=== PATIENT | male | born 1980 | race Caucasian/White ===

== ENCOUNTER 2018-10-05 13:28 | Inpatient (IN) | payer OTHER ==
[2018-10-05 13:36] VITALS: BMI 34.4
--- NOTE | 2018-10-05 13:38 | PDOC ---
History of Present Illness - General Chief Complaint: Injury Stated Complaint: LEFT HIP PAIN Time Seen by Provider: 10/05/18 13:34 - History of Present Illness Initial Comments: 10/05/18 17:17 38 years old with no significant past medical history presents to the emergency department with trauma to left hip. Patient states that approximate 5:00 in the morning he was standing on a kitchen stepstool/ladder fell from approximately 3- 4 feet height directly onto his left hip. Pain was severe 10 out of 10 patient tried to take some Motrin later when he tried to ambulate on it his leg gave out fell face forward sustaining a hematoma to his front of his head and abrasions to his knees Unable to ambulate secondary to pain Pain is persistent constant worse with movement no alleviating factors. Past History - Past Medical History Allergies/Adverse Reactions: Allergies Allergy/AdvReac Type Severity Reaction Status Date / Time No Known Allergies Allergy Verified 10/05/18 13:29 Home Medications: Ambulatory Orders Losartan/Hydrochlorothiazide [Losartan-Hctz 100-25 mg Tab] 1 each PO DAILY 10/05 COPD: No HTN: Yes - Suicide/Smoking/Psychosocial Hx Smoking History: Never smoked Have you smoked in the past 12 months: No Information on smoking cessation initiated: No Hx Alcohol Use: No Review of Systems - Review of Systems Comments:: 10/05/18 17:17 ROS: A complete review of 10 out of 10 review of systems is taken and is negative apart from what is previously mentioned below and in the HPI. *Physical Exam - Vital Signs Last Vital Signs Temp Pulse Resp BP Pulse Ox 98.2 F 89 18 142/97 98 10/05/18 13:28 10/05/18 13:28 10/05/18 13:28 10/05/18 13:28 10/05/18 13:28 - Physical Exam Comments: 10/05/18 17:17 Vitals: Triage Vital signs reviewed General Appearance: severe distress, well nourished well developed, Head: Hematoma above left forehead Eyes: Pupils equal reactive round, extraocular movement intact Ears: TM's normal bilaterally; Neck: Supple;No Nucal rigidity Chest Wall: Nontender Cardiac: Regular rate and rhythym, no murmurs, no rubs, no gallops, Lungs: Clear to auscultation bilateral, good air movement bilaterally, Abdomen: Soft, non distended, normal bowel sounds, non tender to palpation Extremities:Unable to range left hip. Neurovascullary intact distally. Skin: Warm and dry, Abrasion to right forehead abrasion above left eyebrow abrasion to bilateral knee and right parkinson Neuro: Strength intact to all extremities, Sensation intact to all extremities Psych: normal mood, normal affect 10/05/18 17:28 Moderate Sedation - Pre-Procedure Assessment Joint Reduction Is this a Moderate (Conscious) sedation patient?: Yes Med/Surg Hx & PE performed: Yes Vital Signs: Vital Signs Temp Pulse Resp BP Pulse Ox 98.2 F 82 16 146/92 98 10/05/18 13:28 10/05/18 15:25 10/05/18 15:25 10/05/18 15:25 10/05/18 15:25 Does the patient have a history of Obstructive Sleep Apnea: No Prior complications with sedation/analgesia: No Mallampati Score: I ASA Physical Status: Class I Consent obtained: Written Time out called (time): 15:00 Items checked for time out procedure: All work stopped, Patient identified using 2 identifiers, Procedure to be performed verified & agreed, Allergies noted, Consent read, Site marked & verified (if indicated), ED physician/STEWARDING SUPERVISOR/PA/ Resident identified, Patient position verified, All active procedure participants present from the beginning Sedation agent: Propofol # 2 Joint Reduction Is this a Moderate (Conscious) sedation patient?: Yes Med/Surg Hx & PE performed: Yes Vital Signs: Vital Signs Temp Pulse Resp BP Pulse Ox 99.9 F H 89 19 103/51 L 96 10/07/18 06:00 10/07/18 06:00 10/07/18 06:00 10/07/18 06:00 10/07/18 06:00 Does the patient have a history of Obstructive Sleep Apnea: No Prior complications with sedation/analgesia: No NPO since (date): 10/05/18 NPO since (time): 11:00 Mallampati Score: I ASA Physical Status: Class I Consent obtained: Written Time out called (time): 16:40 Items checked for time out procedure: All work stopped, Patient identified using 2 identifiers, Procedure to be performed verified & agreed, Allergies noted, Consent read, Site marked & verified (if indicated), ED physician/STEWARDING SUPERVISOR/PA/ Resident identified, Patient position verified, All active procedure participants present from the beginning Sedation agent: Other (KETOFOL) - Post Procedure Assessment Tolerated procedure well: Yes Was a reversal agent used?: No Patient evaluation: Awake, alert and oriented, Vital signs reviewed, Cardiopulmonary exam normal, Pain controlled Printed Discharge Instructions given: No (not successfully reduced) Heart Score/ECG Review - ECG Impressions Comment:: 10/05/18 17:27 EKG performed at 1718 demonstrates normal sinus rhythm no ST elevations or T- wave inversions. OK interval 172 QRS 86 QTC 437 Interpreted by me. ED Treatment Course - LABORATORY CBC & Chemistry Diagram: 10/07/18 07:20 10/07/18 07:20 Medical Decision Making - Critical Care Time Total Critical Care Time (minutes): 45 Critical Care Statement: The care of this patient involved high complexity decision making to prevent further life threatening deterioration of the patient 's condition and/or to evaluate & treat vital organ system(s) failure or risk of failure. - Medical Decision Making 10/05/18 17:22 S/P Mechanical fall from ladder directly on to left hip. 2nd fall onto head and knees after patient unable to weight bear after 1st fall. Direct trauma to left hip secondary minor head trauma normal neuro exam patient and extremis in the ED 1 mg IV Dilaudid patient sent for x-rays hips [place] left hip dislocation orthopedics consulted 1440 Patient consulted for hip reduction with sedation. Pt. npo since 11am. Hip has been out since 5am. Given the importance of prompt reduction risk benefits of proceding with sedation d/w patient. Pt. agrees to proceed with reduction attempt. 1500pm Moderate sedation performed by TIANA Elaine and reduction performed by Dr. Berkowitz orthopedics Post-reduction film shows improvement but not complete resolution of dislocation 1640pm Patient in agreement for second attempt second attempt performed again with incomplete resolution of dislocation at this time after discussion with patient and orthopedics patient to be transferred to the OR for reduction of left hip A head CT was performed prior to surgery which demonstrates no acute pathology or bleed Tetanus updated wounds have been cleaned all questions answered by TIANA Elaine *DC/Admit/Observation/Transfer Diagnosis at time of Disposition: Hip dislocation, left Qualifiers: Encounter type: initial encounter Qualified Code(s): S73.005A - Unspecified dislocation of left hip, initial encounter - Discharge Dispostion Condition at time of disposition: Stable Decision to Admit order: Yes - Referrals - Patient Instructions - Post Discharge Activity
[2018-10-05] MEDS ORDERED: HYDROmorphone HCL CARPU-JECT 1 MG/1 ML DISP.SYRIN IVPUSH ONE (13:39)
[2018-10-05] MEDS ORDERED: HYDROmorphone HCL CARPU-JECT 1 MG/1 ML DISP.SYRIN ONE (13:50)
[2018-10-05 14:09] LABS: BASO % 0.3 % (0-2.0); EOS % 0.1 % (0-4.5); HEMOGLOBIN 13.9 GM/dl (11.7-16.9); LYMPH % 13.6 % (8-40); MCH 30.7 pg (25.7-33.7); MCHC 33.8 g/dl (32.0-35.9); MEAN CELL VOLUME 90.8 fl (80-96); MEAN PLT VOLUME 7.6 fl (7.5-11.1); MONO % 10.8 % (3.8-10.2); NEUT % 75.2 % (42.8-82.8); PLATELET COUNT 319 K/MM3 (134-434); RBC 4.51 M/mm3 (4.00-5.60)
[2018-10-05 14:21] LABS: ACTIVATED PTT 27.5 SECONDS (25.2-36.5)
[2018-10-05 14:22] LABS: ALBUMIN 4.2 g/dl (3.4-5.0); CALCIUM 8.9 mg/dl (8.5-10); CREATININE 0.9 mg/dl (0.55-1.3); POTASSIUM 3.1 mmol/L (3.5-5.1); TOT PROT 7.4 g/dl (6.4-8.2)
[2018-10-05 14:25] LABS: INR 1.23 (0.82-1.09); PROTHROMBIN TIME (PATIENT) 13.7 SEC (10.2-13.0)
[2018-10-05] MEDS ORDERED: PROPOFOL 200 MG/20 ML VIAL IVPUSH ONE ×3 (15:00→16:19)
[2018-10-05] MEDS ORDERED: PROPOFOL 20 ML ONE ×2 (15:02→15:10)
[2018-10-05] MEDS ORDERED: KETAMINE HCL 200 MG/20 ML VIAL IVPUSH ONE ×2 (16:39→18:00)
[2018-10-05] MEDS ORDERED: KETAMINE HCL 200 MG/20 ML VIAL ONE (16:40)
[2018-10-05] MEDS ORDERED: DIPHTH,PERTUSS(ACELL),TET 0.5 ML DISP.SYRIN IM ONE ×2 (17:18→18:27)
[2018-10-05] MEDS ORDERED: MIDAZOLAM HCL 2 MG/2 ML SINGLE DOSE VIAL ONE ×2 (18:01→18:57)
[2018-10-05] MEDS ORDERED: SODIUM CHLORIDE 0.9% P/F 10 ML VIAL IJ ONE ×2 (18:40→18:50)
[2018-10-05] MEDS ORDERED: ceFAZolin SODIUM 1 GM VIAL ONE (18:50)
[2018-10-05 19:16] LABS: CALCIUM 8.1 mg/dl (8.5-10); CREATININE 1.1 mg/dl (0.55-1.3); POTASSIUM 3.2 mmol/L (3.5-5.1)
[2018-10-05] MEDS ORDERED: PROMETHAZINE HCL 25 MG/1 ML VIAL IVPUSH PRN (20:40)
[2018-10-05] MEDS ORDERED: ONDANSETRON 4 MG/2 ML VIAL IVPUSH PRN (20:40)
--- NOTE | 2018-10-05 22:44 | HP ---
DATE OF ADMISSION: 10/05/2018 CHIEF COMPLAINT: Left hip pain. HISTORY OF PRESENT ILLNESS: This is a 38-year-old gentleman who in the small hours of the morning was on a step ladder when he fell off. He was unable to ambulate afterwards, but decided to wait at home to see if the pain would subside. After not improving, he presented to the emergency department at [facility]. Here, he was found to have a hip dislocation. Orthopedic consultation was called. PAST MEDICAL HISTORY: Includes hypertension. PAST SURGICAL HISTORY: Denies. MEDICATIONS: Include losartan. ALLERGIES: Denies. REVIEW OF SYMPTOMS: Negative for any fever, chills, nausea, vomiting, night sweats, dysuria, shortness of breath, chest pain, rashes, pruritus. No chest pain or palpitations. SOCIAL HISTORY: Denies any drugs or tobacco; occasional alcohol, but not on a weekly basis. PHYSICAL EXAMINATION: General: This is a well-appearing male in apparent discomfort. He is alert and oriented x3. Skin: He is noted to have some abrasions over his head as well as over both knees, which demonstrate no sign of infection. There is no active bleeding. Extremities: The left lower extremity is held in an internally rotated position and is short. He has no pain with range of motion of the upper extremities. He has no pain with range of motion of the right lower extremity. Distally, on his left lower extremity, sensation is intact to light touch. EHL, FHL, tibialis anterior, gastroc, and soleus are all intact. He has a 2+ DP and PT pulse. IMAGING: Radiographs are reviewed, demonstrating a posterior hip dislocation on the left side. No definite fractures are seen. LABORATORY: Results are reviewed, demonstrating elevated liver enzymes as well as some hyponatremia. ASSESSMENT: Left hip dislocation. PLAN: I discussed today's findings with the patient and his . His was present initially for the discussion and then when formal consent was signed, also had done this over the phone as she had left the building at that point. I reviewed that he had a hip dislocation which already had been out for many hours. I reviewed the biggest concern with hip dislocation at this point is avascular necrosis. This is a problem where the bone in the hip dies due to limited blood supply. The best treatment is urgent closed reduction. After review of the risks, benefits, and alternatives of closed reduction, the patient and his elected to proceed. The patient was administered sedation by the emergency room, and good sedation and relaxation were achieved. Traction was applied to the hip and the hip was felt to pop and limb length was now equivalent. There was still significantly limited rotation, however. A post-reduction x-ray was obtained, demonstrating that the proximal migration of the head was corrected. However, it had not entered the acetabular space. The decision was made to perform 1 more attempt at a closed reduction. The second anesthetic was administered, and despite satisfactory relaxation, the hip was able to be posterior dislocated again with gentle pressure, several attempts were made at pulling traction in different rotations to get the hip reduced. However, the rotation could not be restored. Given this finding, the decision was made that a closed reduction would not be successful. After the patient had awoken from the anesthetic and also with his present, we discussed that in the case of a failed closed reduction, open reduction urgently should be performed. Again, the primary concern with hip dislocation is avascular necrosis. Also of concern is sciatic nerve injury. I advised that even with timely closed or open reduction, avascular necrosis is still possible in up to 30% of cases and longer time dislocated is thought to worsen the risk. We discussed that the patient does have a low sodium level which may predispose to anesthetic complications. However, with spinal anesthetic, we felt that the risk would be minimized and delay of surgery to normalize the sodium would result in significantly elevated risk of hip complications. I reviewed the surgery procedure in detail. I reviewed the recovery. I reviewed risks including bleeding, infection, neurovascular injury, need for further surgery, postoperative pain and stiffness. We discussed the option of getting a preoperative CT. However, the cardiovascular technologist currently present is unable to perform a pelvic CT and is only certified for head CTs. Due to the amount of traffic present at this time, the next available technologist is at least an hour away, and it was felt that a further delay was not worth obtaining preoperative CT. A postoperative CT may be obtained to evaluate if any fractures are detected. We discussed there is an elevated long-term risk of developing arthritis in this hip. I discussed medical risks such as heart attack, stroke, DVT, PE, seizure, or . We reviewed postoperative rehabilitation protocol including activity limitations and hip precautions. I addressed all the patient's and his 's questions and concerns. They voiced understanding and elected to proceed. It should be noted that his provided telephone consent for the surgical consent as he had already gone through conscious sedation, and while the patient was alert, it was not clear if he had fully metabolized the medications provided during the conscious sedation. SHILA WELLS M.D. LIA/[id number]
--- NOTE | 2018-10-05 22:46 | PN ---
Progress Note (short form) - Note Progress Note: Episodic Note 10/05/2018 @10:48pm Called by nursing brineyard supervisor Dr. Berkowitz of Orthopedics would like Hospitalist consult for abnormal electrolytes. He is status post open reduction of left hip /orthopedic surgery today. Labs reviewed - potassium 3.2, sodium 129. Potassium was supplemented with 40 meq elixir X2 now and second dosage to be administered 4 hours apart. Repeat BMP and magnesium level in am. Hospitalist team will reevaluate patient in the am. Visit type - Emergency Visit Emergency Visit: No - New Patient This patient is new to me today: Yes Date on this admission: 10/05/18 - Critical Care Critical Care patient: No
[2018-10-05] MEDS: SODIUM CHLORIDE 1,000 ML IV SCH (23:12)
[2018-10-05] MEDS: POTASSIUM CHLORIDE ORAL LIQUID 20 MEQ/15 ML PO SCH (23:12)
[2018-10-06] MEDS: oxyCODONE HCL 5 MG TABLET PO PRN ×3 (01:03→14:51)
--- NOTE | 2018-10-06 01:33 | OP ---
DATE OF OPERATION: 10/05/2018 PREOPERATIVE DIAGNOSIS: Left closed hip dislocation. POSTOPERATIVE DIAGNOSIS: Left closed hip dislocation. PROCEDURE: Left hip open reduction. SURGEON: Oliver Berkowitz MD CLIENT RELATION SPECIALIST: TIFFANY Kohli, whose skillful assistance was necessary to aid the timely performance of the procedure. Ms. Almonte was able to provide limb positioning, retraction, as well as assist me in manual reduction of the hip. BLOOD LOSS: 50 mL. INDICATIONS: This is a 38-year-old gentleman who had underwent 2 unsuccessful closed reductions for a hip dislocation suffered after falling off of a ladder. He was found to have persistent diastasis of the joint and therefore was indicated for open reduction. Prior to surgery, the risks, benefits, and alternatives to surgery were discussed with the patient. The risks that include bleeding, infection, neurovascular injury, need for further surgery (including possible fracture fixation, hip stability repair), avascular necrosis requiring total hip replacement, neurovascular injury, postoperative pain and stiffness. We reviewed medical risks such as heart attack, stroke, DVT, PE, and . We discussed the use of antibiotic and DVT prophylaxis. I reviewed the postoperative rehabilitation protocol and limited function requiring physical therapy afterwards. I addressed all of the patient's questions and concerns. He voiced understanding and elected to proceed. DESCRIPTION OF PROCEDURE: Patient was brought to the operating room after the failed closed reduction. He was then placed into the lateral position following spinal anesthetic administration. Care was taken to pad all of the bony prominences. The hip was now passed through range of motion. One further reduction attempt was made. Fluoroscopy was used to confirm that this was not successful. The patient was now prepped and draped in the usual sterile fashion. The preoperative dose of antibiotics was given in the ED and the procedure was performed. The incision was now planned out over the greater trochanter. This was carried down through the skin and subcutaneous tissue. Electrocautery was used to maintain hemostasis. The fascia was identified. Fascia was now split in line with the limb, exposing the greater trochanteric bursa. The bursa was reflected posteriorly. The electrocautery was now used to dissect posteriorly along as the femur was gently internally rotated. The dissection then allowed us to gain access to the femoral neck. After passing the hip back into a more dislocated posterior position, the capsule was identified and was ripped in its midsubstance and folded into the joint. The joint was palpated and no fractures were palpable and no loose bodies were identified. The joint was irrigated. The hip was now reduced to maintain the capsule outside and was felt to pass into the joint. It was passed through range of motion and found to be stable. Fluoroscopy was used to confirm concentric reduction. The wound was now irrigated once more. Using FiberWire suture, this was passed into a mattress fashion into the posterior capsule. Then 2-0 drill holes were placed in the posterior aspect of the greater trochanter. The capsule and external rotators were repaired now in a single layer to the posterior aspect of the greater trochanter. The fascia was now repaired several tagging FiberWire sutures as well as number 1 Vicryl in between. Subcutaneous tissue was approximated using 2-0 Vicryl. The skin was then closed using 3-0 nylon. Sterile dressings were placed. The patient was then transferred to the recovery room in stable condition. Chele TREVINO/[id number]
[2018-10-06] MEDS: ACETAMINOPHEN 500 MG TABLET (FP) PO PRN (04:40)
[2018-10-06] MEDS: KETOROLAC TROMETHAMINE 30 MG/1 ML VIAL IVPUSH PRN ×2 (06:32→14:52)
[2018-10-06 07:43] LABS: HEMATOCRIT 36.2 % (35.4-49); HEMOGLOBIN 12.3 GM/dl (11.7-16.9); MCHC 33.8 g/dl (32.0-35.9); MEAN CELL VOLUME 91.7 fl (80-96); MEAN PLT VOLUME 7.9 fl (7.5-11.1); PLATELET COUNT 273 K/MM3 (134-434); RBC 3.95 M/mm3 (4.00-5.60); RDW 11.9 % (11.9-15.9); WHITE BLOOD COUNT 11.4 K/mm3 (4.0-10.8)
[2018-10-06] MEDS: CEFAZOLIN 1 GM/D5W 1 GM/50 ML BAG IVPB SCH (08:11)
[2018-10-06 08:12] LABS: CALCIUM 7.9 mg/dl (8.5-10); CREATININE 0.8 mg/dl (0.55-1.3); POTASSIUM 3.6 mmol/L (3.5-5.1)
[2018-10-06] MEDS ORDERED: MAGNESIUM SULF 50% (8.12 MEQ/2 ML-1 GM VIAL) IVPB ONE (09:02)
[2018-10-06] MEDS ORDERED: CALCIUM GLUCONATE 10% - 1,000 MG/10 ML VIAL IVPB ONE (09:02)
[2018-10-06] MEDS ORDERED: SODIUM CHLORIDE 1 GM TABLET PO ONE ×2 (09:15→14:45)
[2018-10-06] MEDS ORDERED: MAGNESIUM 1GM/D5W - 1 GM/100 ML IVPB IVPB ONE (09:15)
[2018-10-06] MEDS: CALCIUM GLUCONATE 10% - 1,000 MG in DEXTROSE 5%-WATER - 100 ML IVPB SCH ×2 (09:52→12:15)
[2018-10-06] MEDS: POTASSIUM CHLORIDE ORAL LIQUID 20 MEQ/15 ML PO SCH (09:53)
[2018-10-06] MEDS: ENOXAPARIN NA (PORCINE) 40 MG/0.4 ML DISP.SYRIN SQ SCH (09:53)
--- NOTE | 2018-10-06 11:09 | HP ---
Admitting History and Physical - Admission Chief Complaint: s/p Left hip ORIF History of Present Illness: 38 year old M with h/o HTN admitted for surigcal intervention after a fall which resulted in left hip dislocation. Patient sustained fall at 4am on 10/05 while he was standing on a kitchen stepstool/ladder falling directly onto his left hip. Symptoms were not relieved with motrin and he decided to present to ED. In ED, pt was hemodynamically stable and left hip x-ray revealed acute dislocation which could not be manually reduced. PT was taken to the OR for reduction and is now s/p Left hip ORIF. Overnight, pt with metabolic disarray. Hospitalist service consulted to assist with management. History Source: Patient Limitations to Obtaining History: No Limitations - Past Medical History Cardiovascular: Yes: HTN - Past Surgical History Past Surgical History: Yes: None - Advance Directives Advance Directives: Yes: Health Care Proxy (: Karen Nelson [phone]) - Smoking History Smoking history: Never smoked Have you smoked in the past 12 months: No - Alcohol/Substance Use Hx Alcohol Use: No History of Substance Use: reports: None - Social History Usual Living Arrangement: Yes: With Spouse ADL: Independent Occupation: works for [employer] History of Recent Travel: No Home Medications - Allergies Allergies/Adverse Reactions: Allergies Allergy/AdvReac Type Severity Reaction Status Date / Time No Known Allergies Allergy Verified 10/05/18 13:29 - Home Medications Home Medications: Ambulatory Orders Losartan/Hydrochlorothiazide [Losartan-Hctz 100-25 mg Tab] 1 each PO DAILY 10/05 Family Disease History - Family Disease History Family Disease History: Other: Father (60+ prostate), Mother (60+ HTN) Review of Systems - Review of Systems Constitutional: reports: Fever, Weakness Eyes: reports: No Symptoms HENT: reports: No Symptoms Neck: reports: No Symptoms Cardiovascular: reports: No Symptoms Respiratory: reports: No Symptoms Gastrointestinal: reports: No Symptoms Genitourinary: reports: No Symptoms Breasts: reports: No Symptoms Reported Musculoskeletal: reports: Back Pain, Joint Pain (Left hip) Integumentary: reports: No Symptoms Neurological: reports: Unsteady Gait Endocrine: reports: No Symptoms Hematology/Lymphatic: reports: No Symptoms Psychiatric: reports: No Symptoms Physical Examination Vital Signs: Vital Signs Temperature 99.4 F 10/06/18 10:00 Pulse Rate 96 H 10/06/18 06:26 Respiratory Rate 18 10/06/18 10:00 Blood Pressure 126/76 10/06/18 10:00 O2 Sat by Pulse Oximetry (%) 98 10/06/18 08:14 Constitutional: Yes: Well Nourished, No Distress, Calm Eyes: Yes: Conjunctiva Clear, EOM Intact, PERRL HENT: Yes: Atraumatic, Normocephalic Neck: Yes: Supple, Trachea Midline Cardiovascular: Yes: Regular Rate and Rhythm Respiratory: Yes: Regular, CTA Bilaterally Gastrointestinal: Yes: Soft, Abdomen, Obese, Hypoactive Bowel Sounds ...Rectal Exam: Yes: Deferred Musculoskeletal: Yes: Joint Stiffness (Left hip) Extremities: Yes: WNL Edema: No Peripheral Pulses WNL: Yes Peripheral Pulses: Left Radial: 2+, Right Radial: 2+ Integumentary: Yes: WNL Wound/Incision: Yes: Other (not visualized, pt not willing to get up from chair to visualize) Neurological: Yes: Alert, Oriented ...Motor Strength: WNL Psychiatric: Yes: Alert, Oriented Labs: CBC, BMP 10/06/18 07:00 10/06/18 07:00 Imaging - Results X-ray: Report Reviewed (Left hip 10/05/2018 Left hip: Post reduction Initial post reduction film shows a widened joint space and there is still a dislocated left femur in relation to the acetabulum. A proper reduction is needed. Orthopedic consultation may be of help.), Other ([id number] RAD/HIP PELVIS- LEFT Pelvis and left hip: Trauma. Fall. An AP view of the pelvis and 3 views of the left hip have been submitted. There is a posterior dislocation of the left hip but no sign of a gross fracture. The other bones are intact. There is a left pelvic phlebolith. The SI joints are patent and there is a nonspecific bowel pattern. Correlation and follow-up recommended.) Cat Scan: Report Reviewed (CT head 10/05/2018 IMPRESSION: Limited study with no evidence of acute intracranial pathology) Other: Report Reviewed (L-spine X-ray 10/05/2018 Lumbar spine: Pain. Fall. AP and 2 lateral views of the lumbar spine have been submitted. The AP view shows 4 lumbar type vertebral bodies with attempted sacralization of L5. SI joints are patent. There is a dislocated left hip. The left pelvic phlebolith. The SI joints are patent. The paraspinal soft tissues are unremarkable. Lateral and spot lateral view showed normal lordosis with degenerative changes and narrowing of the L5-S1 intervertebral disc space with vacuum phenomena. There is some minimal wedging. If symptoms persist, further imaging and orthopedic consultation may be of help) Problem List - Problems (1) HTN (hypertension) Assessment/Plan: pt takes hyzaar 100/25mg daily at home start losartan 50mg once daily IVF, advance orals as tolerated monitor on telemetry Code(s): I10 - ESSENTIAL (PRIMARY) HYPERTENSION (2) Prophylactic measure Assessment/Plan: SC lovenox OOB to chair LEft hip precautions start bowel regimen with senna/colace Code(s): Z29.9 - ENCOUNTER FOR PROPHYLACTIC MEASURES, UNSPECIFIED (3) Metabolic disorder, unspecified Assessment/Plan: Na = 129, give NaCl 0.5gm x2 doses today Mag, calcium, phos and K repleted serial BMP urine electrolytes to lab Code(s): E88.9 - METABOLIC DISORDER, UNSPECIFIED (4) Hip dislocation, left Assessment/Plan: pt being managed by surgery pain management with APAP, toradol, percocet and oxycodone Code(s): S73.005A - UNSPECIFIED DISLOCATION OF LEFT HIP, INITIAL ENCOUNTER Qualifiers: Encounter type: initial encounter Qualified Code(s): S73.005A - Unspecified dislocation of left hip, initial encounter (5) Temperature elevated Assessment/Plan: blood culture x 2 sets, ucx trend WBC and temp curve Code(s): R50.9 - FEVER, UNSPECIFIED Assessment/Plan Code status: FULL DISPO: short term rehab vs. home Visit type - Emergency Visit Emergency Visit: Yes ED Registration Date: 10/05/18 Care time: The patient presented to the Emergency Department on the above date and was hospitalized for further evaluation of their emergent condition. - New Patient This patient is new to me today: Yes Date on this admission: 10/06/18 - Critical Care Critical Care patient: No
--- NOTE | 2018-10-06 11:55 | PN ---
Progress Note (short form) - Note Progress Note: This is a 38 yo male who presented to ED yesterday with left hip dislocation s/ p mechanical fall off ladder 8 hours prior. Patient POD #1 s/p open reduction last night. He is lying in arm chair with abduction pillow. Notes some pain to left hip and difficulty with ambulation during PT session this morning. Last Vital Signs Temp Pulse Resp BP Pulse Ox 99.4 F 96 H 18 126/76 98 10/06/18 10:00 10/06/18 06:26 10/06/18 10:00 10/06/18 10:00 10/06/18 08:14 PE: LLE Dressing clean dry and intact Calves soft nontender Neurovascularly intact bilaterally Cap refill intact Abnormal Lab Results 10/05/18 10/05/18 10/05/18 13:45 13:45 13:45 WBC 12.0 H RBC Monocytes % 10.8 H PT with INR 13.7 H INR 1.23 H Sodium 128 L Potassium 3.1 L Chloride 94 L Carbon Dioxide 19 L Random Glucose 109 H Calcium AST 161 H 10/05/18 10/06/18 10/06/18 18:49 07:00 07:00 WBC 11.4 H RBC 3.95 L Monocytes % PT with INR INR Sodium 129 L 129 L Potassium 3.2 L Chloride 96 L 97 L Carbon Dioxide Random Glucose 120 H Calcium 8.1 L 7.9 L AST A: POD #1 s/p left hip open reduction P: As patient is having difficulty with ambulation, I recommend he stay over night for continued monitoring Patient will go for CT of pelvis today Followed by hospitalist for hyponatremia Pain control Continue PT Toe-touch weight-bearing with crutches DVT prophylaxis
--- NOTE | 2018-10-06 12:08 | EKG ---
Test Reason : Blood Pressure : / mmHG Vent. Rate : 085 BPM Atrial Rate : 085 BPM P-R Int : 172 ms QRS Dur : 086 ms QT Int : 368 ms P-R-T Axes : 053 027 032 degrees QTc Int : 437 ms NORMAL SINUS RHYTHM NORMAL ECG NO PREVIOUS ECGS AVAILABLE Confirmed by Justin Li ([id number]) on 10/06/2018 12:08:29 PM Referred By: Oliver Berkowitz Confirmed By:Justin Li
[2018-10-06 14:06] LABS: ALBUMIN 3.2 g/dl (3.4-5.0); BILIRUBIN,TOTAL 0.7 mg/dl (0.2-1); CALCIUM 8.5 mg/dl (8.5-10); PHOSPHOROUS 1.8 mg/dl (2.5-4.9); POTASSIUM 3.9 mmol/L (3.5-5.1); TOT PROT 6.2 g/dl (6.4-8.2)
[2018-10-06] MEDS ORDERED: POTASSIUM CHLORIDE TABS 10 MEQ TABLET.ER (FP) PO ONE (14:30)
[2018-10-06] MEDS ORDERED: DOCUSATE SODIUM 100 MG CAPSULE (FP) PO PRN (14:30)
[2018-10-06] MEDS ORDERED: SENNOSIDES 8.6MG TABLET (FP) PO PRN (14:30)
--- NOTE | 2018-10-06 14:34 | EKG ---
Test Reason : Blood Pressure : / mmHG Vent. Rate : 102 BPM Atrial Rate : 102 BPM P-R Int : 154 ms QRS Dur : 084 ms QT Int : 322 ms P-R-T Axes : 019 006 023 degrees QTc Int : 419 ms SINUS TACHYCARDIA OTHERWISE NORMAL ECG WHEN COMPARED WITH ECG OF 05-OCT-2018 17:18, NO SIGNIFICANT CHANGE WAS FOUND Confirmed by Justin Li ([id number]) on 10/06/2018 2:34:00 PM Referred By: Oliver Berkowitz Confirmed By:Justin Li
[2018-10-06] MEDS ORDERED: SODIUM PHOSPHATE - 22 MM in SODIUM CHLORIDE 250 ML IVPB ONE (14:45)
[2018-10-06] MEDS ORDERED: PATIENT'S OWN MEDICATION (NON-FORMULARY) (Losartan/Hydrochlorothiazide [Losartan-Hctz 100- PO SCH (16:00)
[2018-10-06] MEDS: LOSARTAN POTASSIUM 50 MG TABLET (FP) PO SCH (16:20)
[2018-10-06 16:53] LABS: BASO % 0.4 % (0-2.0); HEMATOCRIT 37.6 % (35.4-49); HEMOGLOBIN 12.7 GM/dL (11.7-16.9); LYMPH % 10.3 % (8-40); MCH 30.7 pg (25.7-33.7); MCHC 33.7 g/dl (32.0-35.9); MEAN CELL VOLUME 91.1 fl (80-96); MEAN PLT VOLUME 7.9 fl (7.5-11.1); MONO % 10.2 % (3.8-10.2); NEUT % 79.1 % (42.8-82.8); PLATELET COUNT 268 K/MM3 (134-434); RBC 4.13 M/mm3 (4.00-5.60); WHITE BLOOD COUNT 13.1 K/mm3 (4.0-10.0)
[2018-10-06] MEDS: SODIUM CHLORIDE 1,000 ML IV SCH (20:45)
[2018-10-07] MEDS: ACETAMINOPHEN 500 MG TABLET (FP) PO PRN ×3 (05:30→18:00)
[2018-10-07 07:49] LABS: HEMATOCRIT 32.7 % (35.4-49); HEMOGLOBIN 11.2 GM/dl (11.7-16.9); MCH 31.5 pg (25.7-33.7); MCHC 34.2 g/dl (32.0-35.9); MEAN CELL VOLUME 91.9 fl (80-96); MEAN PLT VOLUME 7.8 fl (7.5-11.1); PLATELET COUNT 254 K/MM3 (134-434); RBC 3.56 M/mm3 (4.00-5.60); RDW 12.2 % (11.9-15.9); WHITE BLOOD COUNT 11.8 K/mm3 (4.0-10.8)
[2018-10-07 08:20] LABS: ALBUMIN 2.7 g/dl (3.4-5.0); BILIRUBIN,TOTAL 1.2 mg/dl (0.2-1); CALCIUM 8.1 mg/dl (8.5-10); CREATININE 0.8 mg/dl (0.55-1.3); MAGNESIUM 1.9 mg/dL (1.8-2.4); PHOSPHOROUS 2.2 mg/dl (2.5-4.9); POTASSIUM 3.9 mmol/L (3.5-5.1); TOT PROT 5.4 g/dl (6.4-8.2)
[2018-10-07] MEDS: ENOXAPARIN NA (PORCINE) 40 MG/0.4 ML DISP.SYRIN SQ SCH (09:33)
[2018-10-07] MEDS: oxyCODONE HCL 5 MG TABLET PO PRN ×3 (09:34→20:28)
--- NOTE | 2018-10-07 11:03 | PN ---
Physical Exam: SUBJECTIVE: Patient seen and examined, pt feeling well, POD #2, left hip ORIF electrolytes repleted yesterday Na 133, K+3.9, Mag 1.9 WBC trending down pelvis CT done yesterday- diverticulosis in coli of sigmoid w/o diverticulitis, pt having BM, tolerating diet, denies abd pain chest xray no active disease can be dc as per Medical standpoint OBJECTIVE: Vital Signs Period Temp Pulse Resp BP Sys/Chapin Pulse Ox Last 24 Hr 99.9 F-102.1 F 89-104 18-20 103-136/51-70 96-97 GENERAL: The patient is awake, alert, and fully oriented, in no acute distress. HEAD: Normal with no signs of trauma. EYES: PERRL, extraocular movements intact, sclera anicteric, conjunctiva clear. No ptosis. ENT: Ears normal, nares patent, oropharynx clear without exudates, moist mucous membranes. NECK: Trachea midline, full range of motion, supple. LUNGS: Breath sounds equal, clear to auscultation bilaterally, no wheezes, no crackles, no accessory muscle use. HEART: Regular rate and rhythm, S1, S2 without murmur, rub or gallop. ABDOMEN: Soft, nontender, nondistended, normoactive bowel sounds, no guarding, no rebound, no hepatosplenomegaly, no masses. EXTREMITIES: 2+ pulses, warm, well-perfused, no edema. NEUROLOGICAL: Cranial nerves II through XII grossly intact. Normal speech, gait not observed. PSYCH: Normal mood, normal affect. SKIN: Warm, dry, normal turgor, no rashes or lesions noted Laboratory Results - last 24 hr 10/06/18 10/06/18 10/06/18 13:45 13:45 13:45 WBC 13.1 H RBC 4.13 Hgb 12.7 Hct 37.6 MCV 91.1 MCH 30.7 MCHC 33.7 RDW 13.0 Plt Count 268 MPV 7.9 Absolute Neuts (auto) 10.4 H Neutrophils % 79.1 Lymphocytes % 10.3 Monocytes % 10.2 Eosinophils % 0.0 Basophils % 0.4 Nucleated RBC % 0 Sodium 132 L Potassium 3.9 Chloride 99 Carbon Dioxide 25 Anion Gap 8 BUN 11.0 Creatinine 1.0 Est GFR (CKD-EPI)AfAm 108.63 Est GFR (CKD-EPI)NonAf 93.73 Random Glucose 112 H Calcium 8.5 Phosphorus 1.8 L Magnesium 2.0 Total Bilirubin 0.7 AST 143 H ALT 51 Alkaline Phosphatase 48 D Total Protein 6.2 L Albumin 3.2 L Urine Color Urine Appearance Urine pH Urine Protein Urine Glucose (UA) Urine Ketones Urine Blood Urine Nitrite Urine Bilirubin Urine Urobilinogen Ur Leukocyte Esterase Urine RBC Ur Random Sodium 10/06/18 10/06/18 10/07/18 16:26 16:26 07:20 WBC 11.8 H RBC 3.56 L Hgb 11.2 L Hct 32.7 L MCV 91.9 MCH 31.5 MCHC 34.2 RDW 12.2 Plt Count 254 MPV 7.8 Absolute Neuts (auto) Neutrophils % Lymphocytes % Monocytes % Eosinophils % Basophils % Nucleated RBC % Sodium Potassium Chloride Carbon Dioxide Anion Gap BUN Creatinine Est GFR (CKD-EPI)AfAm Est GFR (CKD-EPI)NonAf Random Glucose Calcium Phosphorus Magnesium Total Bilirubin AST ALT Alkaline Phosphatase Total Protein Albumin Urine Color Yellow Urine Appearance Clear Urine pH 7.0 Urine Protein Negative Urine Glucose (UA) Negative Urine Ketones Negative Urine Blood 1+ H Urine Nitrite Negative Urine Bilirubin Negative Urine Urobilinogen 0.2 Ur Leukocyte Esterase Negative Urine RBC 2-5 Ur Random Sodium 18 L 10/07/18 07:20 WBC RBC Hgb Hct MCV MCH MCHC RDW Plt Count MPV Absolute Neuts (auto) Neutrophils % Lymphocytes % Monocytes % Eosinophils % Basophils % Nucleated RBC % Sodium 133 L Potassium 3.9 Chloride 102 Carbon Dioxide 25 Anion Gap 6 L BUN 10.0 Creatinine 0.8 Est GFR (CKD-EPI)AfAm 129.51 Est GFR (CKD-EPI)NonAf 111.74 Random Glucose 102 Calcium 8.1 L Phosphorus 2.2 L Magnesium 1.9 Total Bilirubin 1.2 H AST 101 H ALT 44 Alkaline Phosphatase 44 L Total Protein 5.4 L Albumin 2.7 L Urine Color Urine Appearance Urine pH Urine Protein Urine Glucose (UA) Urine Ketones Urine Blood Urine Nitrite Urine Bilirubin Urine Urobilinogen Ur Leukocyte Esterase Urine RBC Ur Random Sodium Active Medications Generic Name Dose Route Start Last Admin Trade Name Freq PRN Reason Stop Dose Admin Acetaminophen 1,000 mg 10/06/18 04:36 10/07/18 09:35 Tylenol - PO 1,000 mg Q6H PRN Administration FEVER Docusate Sodium 100 mg 10/06/18 14:30 10/06/18 14:49 Colace - PO 100 mg Q8H PRN Administration CONSTIPATION Enoxaparin Sodium 40 mg 10/06/18 10:00 10/07/18 09:33 Lovenox - SQ 40 mg DAILY CINTHIA Administration Sodium Chloride 1,000 mls @ 100 mls/hr 10/05/18 20:45 10/06/18 20:45 Normal Saline - IV 100 mls/hr ASDIR CINTHIA Administration Ketorolac Tromethamine 30 mg 10/05/18 20:41 10/06/18 14:52 Toradol Injection - IVPUSH 10/10/18 20:40 30 mg Q6H PRN Administration PAIN LEVEL 1-5 Losartan Potassium 50 mg 10/06/18 16:00 10/06/18 16:20 Cozaar - PO 50 mg DAILY@1600 CINTHIA Administration Ondansetron HCl 4 mg 10/05/18 20:40 Zofran Injection IVPUSH Q6H PRN NAUSEA AND/OR VOMITING Oxycodone HCl 10 mg 10/05/18 20:40 10/07/18 09:34 Roxicodone - PO 10 mg Q4H PRN Administration PAIN LEVEL 6-10 Oxycodone/Acetaminophen 1 combo 10/05/18 20:36 10/07/18 05:29 Percocet 5/325 - PO 1 combo Q6H PRN Administration PAIN LEVEL 1-5 Senna 2 tab 10/06/18 14:30 Senna - PO HS PRN CONSTIPATION ASSESSMENT/PLAN: - Problems (1) HTN (hypertension) Assessment/Plan: pt takes hyzaar 100/25mg daily at home start losartan 50mg once daily monitor on telemetry Code(s): I10 - ESSENTIAL (PRIMARY) HYPERTENSION (2) Prophylactic measure Assessment/Plan: SC lovenox OOB to chair Left hip precautions start bowel regimen with senna/colace Code(s): Z29.9 - ENCOUNTER FOR PROPHYLACTIC MEASURES, UNSPECIFIED (3) Metabolic disorder, unspecified Assessment/Plan: Na = 133 today Mag, calcium, phos and K repleted serial BMP urine electrolytes to lab Code(s): E88.9 - METABOLIC DISORDER, UNSPECIFIED (4) Hip dislocation, left Assessment/Plan: pt being managed by surgery pain management with APAP, toradol, percocet and oxycodone Code(s): S73.005A - UNSPECIFIED DISLOCATION OF LEFT HIP, INITIAL ENCOUNTER Qualifiers: Encounter type: initial encounter Qualified Code(s): S73.005A - Unspecified dislocation of left hip, initial encounter (5) Temperature elevated Assessment/Plan: blood culture x 2 sets, pending trend WBC and temp curve-improved Code(s): R50.9 - FEVER, UNSPECIFIED Visit type - Emergency Visit Emergency Visit: Yes ED Registration Date: 10/05/18 Care time: The patient presented to the Emergency Department on the above date and was hospitalized for further evaluation of their emergent condition. - New Patient This patient is new to me today: Yes Date on this admission: 10/07/18 - Critical Care Critical Care patient: No
--- NOTE | 2018-10-07 11:36 | PN ---
Progress Note (short form) - Note Progress Note: This is a 38 yo male who presented to ED yesterday with left hip dislocation s/ p mechanical fall off ladder 8 hours prior. Patient POD #2 s/p open reduction last night. He is lying comfortably in arm chair with abduction pillow. Notes some pain to left hip last night but improving this morning. States he feels more comfortable ambulating on his own. Last Vital Signs Temp Pulse Resp BP Pulse Ox 99.9 F H 89 19 103/51 L 96 10/07/18 06:00 10/07/18 06:00 10/07/18 06:00 10/07/18 06:00 10/07/18 06:00 PE: LLE Dressing clean dry and intact Calves soft nontender Neurovascularly intact bilaterally Cap refill intact Abnormal Lab Results 10/06/18 10/06/18 10/06/18 13:45 13:45 13:45 WBC 13.1 H RBC Hgb Hct Absolute Neuts (auto) 10.4 H Sodium 132 L Anion Gap Random Glucose 112 H Calcium Phosphorus 1.8 L Total Bilirubin AST 143 H Alkaline Phosphatase Total Protein 6.2 L Albumin 3.2 L Urine Blood Ur Random Sodium 10/06/18 10/06/18 10/07/18 16:26 16:26 07:20 WBC 11.8 H RBC 3.56 L Hgb 11.2 L Hct 32.7 L Absolute Neuts (auto) Sodium Anion Gap Random Glucose Calcium Phosphorus Total Bilirubin AST Alkaline Phosphatase Total Protein Albumin Urine Blood 1+ H Ur Random Sodium 18 L 10/07/18 07:20 WBC RBC Hgb Hct Absolute Neuts (auto) Sodium 133 L Anion Gap 6 L Random Glucose Calcium 8.1 L Phosphorus 2.2 L Total Bilirubin 1.2 H AST 101 H Alkaline Phosphatase 44 L Total Protein 5.4 L Albumin 2.7 L Urine Blood Ur Random Sodium A: POD #2 s/p open reduction left hip dislocation P: CT of pelvis shows no evidence of fracture or dislocation. Good B/L alignment of hip joint Followed by hospitalist for hyponatremia, improving Patient more confident ambulating on his own. Okay to discharge home from ortho standpoint Will be sent home on Indomethacin for heterotopic ossification prophylaxis x 2 weeks F/u outpatient 10 days post-op Pain control Toe-touch weight-bearing with crutches
[2018-10-07] MEDS: LOSARTAN POTASSIUM 50 MG TABLET (FP) PO SCH (15:18)
[2018-10-08 06:11] LABS: HEP.C VIRUS AB 0.2 s/co ratio (0.0-0.9)
[2018-10-08 06:41] VITALS: BP 107/55; PULSE 96; TEMP 98.4
[2018-10-08 08:07] LABS: BASO % 0.2 % (0-2.0); HEMATOCRIT 32.3 % (35.4-49); HEMOGLOBIN 11.1 GM/dl (11.7-16.9); LYMPH % 17.2 % (8-40); MCH 31.8 pg (25.7-33.7); MCHC 34.5 g/dl (32.0-35.9); MEAN CELL VOLUME 92.2 fl (80-96); MEAN PLT VOLUME 7.8 fl (7.5-11.1); MONO % 8.3 % (3.8-10.2); NEUT % 73.3 % (42.8-82.8); PLATELET COUNT 306 K/MM3 (134-434); RDW 11.8 % (11.9-15.9); WHITE BLOOD COUNT 11.9 K/mm3 (4.0-10.8)
[2018-10-08 08:22] LABS: ALBUMIN 2.5 g/dl (3.4-5.0); BILIRUBIN,TOTAL 0.8 mg/dl (0.2-1); CALCIUM 7.9 mg/dl (8.5-10); CREATININE 0.8 mg/dl (0.55-1.3); TOT PROT 5.4 g/dl (6.4-8.2)
[2018-10-08] MEDS: ACETAMINOPHEN 500 MG TABLET (FP) PO PRN (09:14)
[2018-10-08] MEDS: oxyCODONE HCL 5 MG TABLET PO PRN (09:15)
[2018-10-08] MEDS: ENOXAPARIN NA (PORCINE) 40 MG/0.4 ML DISP.SYRIN SQ SCH (09:15)
--- NOTE | 2018-10-08 12:15 | PN ---
Progress Note (short form) - Note Progress Note: This is a 38 yo male POD #3 s/p open reduction last night. He is lying comfortably in arm chair with abduction pillow. Notes significant improvement in pain and ambulation. Last Vital Signs Temp Pulse Resp BP Pulse Ox 98.4 F 96 H 16 107/55 L 96 10/08/18 06:00 10/08/18 06:00 10/08/18 06:00 10/08/18 06:00 10/08/18 06:00 PE: LLE Dressing clean dry and intact Calves soft nontender Neurovascularly intact bilaterally Cap refill intact Abnormal Lab Results 10/08/18 10/08/18 07:05 07:05 WBC 11.9 H RBC 3.50 L Hgb 11.1 L Hct 32.3 L RDW 11.8 L Sodium 134 L Anion Gap 6 L Calcium 7.9 L AST 75 H Alkaline Phosphatase 44 L Total Protein 5.4 L Albumin 2.5 L A: POD #3 s/p open reduction left hip dislocation P: Okay to discharge home Followed by hospitalist for hyponatremia, improving Indomethacin for heterotopic ossification prophylaxis and pain medication sent to pharmacy F/u outpatient 10 days post-op Continue toe-touch weight-bearing with crutches and abduction pillow as outpatient
== END 2018-10-08 13:45 | disposition home or self-care (01) | DRG 481 ==
LOC: FER 13:28 → FM/S 17:29
PROVIDERS: ADMIT Orthopaedic Surgery Sports Medicine; ATTEND Orthopaedic Surgery Sports Medicine
PROC: 0SSBXZZ Reposition Left Hip Joint, External Approach (ICD-10-PCS; 2018-10-05)
PROC: 0SSB04Z Reposition Left Hip Joint with Internal Fixation Device, Open Approach (ICD-10-PCS; principal; 2018-10-05 18:57)
DX: S73.015A Posterior dislocation of left hip, initial encounter (principal); E87.1 Hypo-osmolality and hyponatremia; E88.9 Metabolic disorder, unspecified; I10 Essential (primary) hypertension; S00.83XA Contusion of other part of head, initial encounter; S00.212A Abrasion of left eyelid and periocular area, initial encounter; S80.212A Abrasion, left knee, initial encounter; S80.211A Abrasion, right knee, initial encounter; S80.811A Abrasion, right lower leg, initial encounter; S00.81XA Abrasion of other part of head, initial encounter; W11.XXXA Fall on and from ladder, initial encounter; Y93.89 Activity, other specified; Y92.030 Kitchen in apartment as the place of occurrence of the external cause; Y99.8 Other external cause status
CPT/HCPCS: 36415; 70450-TC; 71045-TC-FY; 72100-TC-FY; 72192-TC; 73502-TC-LT-FY; 73523-TC-FY; 80048; 80053; 80074; 81003; 81015; 82330; 83735; 84100; 84300; 85025; 85027; 85610; 85730; 86850; 86900; 86901; 87040; 90715; 93005; 94760; 97116-GP; 97162-GP; 99285-25; J7030